=== PATIENT | female | born 1975 | race Two or more races ===

== ENCOUNTER 2018-09-16 11:51 | Outpatient (CLI) | payer OTHER | END 2018-09-16 11:58 | disposition home or self-care (01) | LOC: SONOGRAMA 11:51 | DX: E04.8 Other specified nontoxic goiter (principal) ==

== ENCOUNTER → 2018-09-17 10:10 | Outpatient (CLI) | payer OTHER | END | disposition home or self-care (01) | LOC: LAB 10:10 | DX: E03.8 Other specified hypothyroidism (principal); E11.65 Type 2 diabetes mellitus with hyperglycemia; E28.2 Polycystic ovarian syndrome ==